=== PATIENT | female | born 1955 | race Caucasian/White ===

== ENCOUNTER 2016-10-16 09:19 | Emergency (ER) | payer BC, OTHER ==
[~2016-10-16] VITALS: Ht 162.6 cm; Wt 88.5 kg
[~2016-10-16 09:19] MED LIST: ADVIN10/60 INH; ASPI81CH2 PO; CALCCHW PO; CHOL100027 PO; COEN1CAP7 PO; DILT180C70 PO; FEXO1TAB46 PO; LEVO125T72 PO; LOSA100T2 PO; MONT1TAB3 PO; NXM/40 PO; OMEG12006 PO; ROSU5TAB PO; XPNIN INH
[2016-10-16 09:29] VITALS: TEMP 37; Ht 162.6 cm; Wt 88.5 kg
[2016-10-16] MEDS ORDERED: LEVA45AE INH (09:34)
[2016-10-16] MEDS ORDERED: LEVO-519 PO (09:34)
[2016-10-16] MEDS ORDERED: PRT/20 PO (09:34)
--- NOTE | 2016-10-16 10:23 | EMERGENCY ROOM VISIT NOTE ---
ED Visit Note First contact with patient: 09:25 Chief Complaint: LEFT Wrist Pain - Fall History of Present Illness: Patient is a 61-year-old female who presents to the emergency Department by private vehicle for evaluation of an injury to the LEFT wrist. She reports that while ambulating in her driveway earlier this morning she slipped falling on an extended LEFT hand. She denies striking her head or any loss of consciousness. She reports a moderate amount of discomfort in the LEFT wrist which is worse with range of motion activities. Patient denies any numbness or tingling into the distal extremity. She rates her current discomfort is 7/10. She denies any associated shoulder pain, elbow pain, or finger pain. She did ice the area immediately with minimal relief of symptoms. The patient denies any prefall headaches, dizziness, lightheadedness, chest pain, or palpitations. Medications: Reviewed and discussed with the patient. Allergies: Phenazopyridine PMH: No pertinent past medical history. SHx: Patient is a 61-year-old female who lives locally. ROS: All pertinent positive and negative review of systems are appropriately documented in the History of Present Illness. Physical Exam: VITAL SIGNS - Vital signs and nursing notes were reviewed. GENERAL - 61-year-old female appearing her stated age and in noticeable discomfort throughout the exam. MUSCULOSKELETAL - Active ROM of the LEFT wrist was limited in all directions. Moderate edema noted over the distal LEFT wrist. No palpable deformities. Moderate tenderness over the radial and ulnar styloid processes. Mild tenderness with squeezing the distal forearm. No tenderness extending into the carpals. No point-tenderness over the anatomic snuffbox. Moderate pain elicited with supination and pronation of the forearm. NEUROLOGIC - SENSORY: Spinothalamic tract was found to be intact with ability to discriminate sharp versus dull sensation at the level of the LEFT elbow down to the fingertips. No sensory deficits of the dorsal column were appreciated utilizing light touch for evaluation. VASCULAR - Capillary refill was brisk. +3/5 radial pulse palpated. IMAGING: LEFT WRIST W/NAVICULAR MIN 3 VIEWS CLINICAL HISTORY: pain s/p fall trauma. Pain. COMPARISON: None. DISCUSSION: Transverse slightly impacted fracture distal radius. Avulsion ulnar styloid. Moderate soft tissue edema. No evidence of dislocation. 2009 IMPRESSION: 1. Transverse slightly impacted fracture distal radius. 2. An avulsion ulnar styloid. ED Course: Patient was seen and evaluated by myself. Patient declines anything for pain while in the emergency department. Patient was provided ice for comfort. X- ray of the affected wrist was obtained. Imaging results as above. Imaging results were reviewed with the patient who acknowledges understanding. The patient was placed in an Ortho-Glass splint for comfort. The patient remains neurovascularly intact pre-and post-splinting. Patient will follow closely with [facility] orthopedics with whom she has been established. The patient was educated on worrisome symptoms for return visit to the emergency department. Patient discharged home in good condition. In the evaluation and treatment of this patient, the following differential diagnoses were considered: Wrist Sprain, Wrist Fracture, Wrist Dislocation, Scapholunate Dissociation, Carpal Fracture, Metacarpal Fracture, Radial Styloid Process Fracture, Ulnar Styloid Process Fracture, or Carpal Tunnel Syndrome. Impression: LEFT Wrist Fracture (Radius and Ulnar Styloid Process Fracture) Discharge Instructions: You have been treated in the Emergency Department for Wrist Fracture. You have been prescribed Vesta to be used for pain control. This is a narcotic medication. You cannot drive or consume alcohol while on this medicine. This medicine should only be used for pain that cannot be controlled with over-the- counter pain medicines. For pain control, you can use the following fnhy-alw-rxsafkm medicines (if >12 yo): - Regular strength (325mg/tab) Tylenol (acetaminophen) 2 tabs every 4-6 hours as needed. Do not exceed 12 tablets in a 24 hour period. Avoid taking more than 4 grams (4000 mg) of Tylenol per day. This includes any other sources of acetaminophen you may take on a regular basis. - Regular strength (200 mg/tab) Advil (ibuprofen) 1-2 tabs every 4-6 hours as needed. Do not exceed a dose of 3200 mg per day. If this is a recent injury (<24 hrs), ice can be applied to the area of pain for the first 3 days to help decrease pain and inflammation. You have been provided the number for an Orthopaedic Surgeon. You should call this number as soon as possible to establish a follow-up visit from today's Emergency Department visit. Keep the brace in place until evaluated by Orthopedics. Return to the Emergency Department if your current symptoms worsen despite treatment course outlined above, or if you develop any of the following symptoms : intractable pain despite aforementioned treatment course or new onset of numbness or tingling of the fingers. Problem List Medical Problems: (1) Anemia Status: Chronic Current/Historical Medications Scheduled Aspirin (Aspirin), MG PO DAILY Calcium Carbonate-Vitamin D W/ (Caltrate 600+D Plus), 1,200 MG PO DAILY Cholecalciferol (Vitamin D 1000 Unit), 1,000 INTER.UNIT PO DAILY Coenzyme Q10 (Ubidecarenone) (Coq10), MG PO DAILY Diltiazem Hcl (Diltiazem Hcl), 1 MG PO DAILY Esomeprazole Magnesium (Nexium), 40 MG PO QPM Fexofenadine Hcl (Violeta), 180 MG PO DAILY Fluticasone Prop/Salmeterol (Advair Diskus 100/50 60 Dose), 1 PUFF INH BID Levothyroxine Sodium (Synthroid), 137 MCG PO DAILY Montelukast Sodium (Singulair), 10 MG PO DAILY [place]-3 Fatty Acids ([place] 3), 1,400 MG PO DAILY Pantoprazole (Protonix), 20 MG PO QAM Rosuvastatin Calcium (Crestor), 5 MG PO DAILY Scheduled PRN Hydrocodone/Acetaminophen 5MG/325MG (Vesta 5MG/325MG), 1-2 TABLET PO Q4H PRN for Pain Levalbuterol Tartrate (Levalbuterol Tartrate Hfa), 1 PUFF INH DAILY PRN for SOB/ Wheezing Miscellaneous Medications Losartan Potassium & Hydrochlo (Hyzaar) Allergies Coded Allergies: Phenazopyridine (Verified Allergy, Mild, SYNCOPE, 10/16/16) Vital Signs Date Time Temp Pulse Resp B/P Pulse Ox O2 Delivery O2 Flow Rate FiO2 10/16/16 11:38 85 17 142/71 95 10/16/16 09:29 37.0 82 16 153/73 95 Room Air Departure Information Impression Primary Impression: Wrist fracture, left Dispostion Home / Self-Care Condition GOOD Prescriptions Hydrocodone/Acetaminophen 5MG/325MG (Vesta 5MG/325MG) Tab 1-2 TABLET PO Q4H Y for Pain, #16 TAB For Initial Treatment Prov: Skyler Rodriguez, [place] 10/16/16 Referrals Wei Malik M.D. (PCP) Abram Crook MD Patient Instructions ED Fracture, Wrist (Infant/Toddler), [facility] Additional Instructions You have been treated in the Emergency Department for Wrist Fracture. You have been prescribed Vesta to be used for pain control. This is a narcotic medication. You cannot drive or consume alcohol while on this medicine. This medicine should only be used for pain that cannot be controlled with over-the- counter pain medicines. For pain control, you can use the following mfpp-wdw-mpqhosw medicines (if >12 yo): - Regular strength (325mg/tab) Tylenol (acetaminophen) 2 tabs every 4-6 hours as needed. Do not exceed 12 tablets in a 24 hour period. Avoid taking more than 4 grams (4000 mg) of Tylenol per day. This includes any other sources of acetaminophen you may take on a regular basis. - Regular strength (200 mg/tab) Advil (ibuprofen) 1-2 tabs every 4-6 hours as needed. Do not exceed a dose of 3200 mg per day. If this is a recent injury (<24 hrs), ice can be applied to the area of pain for the first 3 days to help decrease pain and inflammation. You have been provided the number for an Orthopaedic Surgeon. You should call this number as soon as possible to establish a follow-up visit from today's Emergency Department visit. Keep the brace in place until evaluated by Orthopedics. Return to the Emergency Department if your current symptoms worsen despite treatment course outlined above, or if you develop any of the following symptoms : intractable pain despite aforementioned treatment course or new onset of numbness or tingling of the fingers. Problem Qualifiers Primary Impression: Wrist fracture, left Encounter type: initial encounter Fracture type: closed Qualified Codes: S62.102A - Fracture of unspecified carpal bone, left wrist, initial encounter for closed fracture
--- NOTE | 2016-10-16 10:46 | DIAGNOSTIC IMAGING REPORT ---
LEFT WRIST W/NAVICULAR MIN 3 VIEWS CLINICAL HISTORY: pain s/p fall trauma. Pain. COMPARISON: None. DISCUSSION: Transverse slightly impacted fracture distal radius. Avulsion ulnar styloid. Moderate soft tissue edema. No evidence of dislocation. 2009 IMPRESSION: 1. Transverse slightly impacted fracture distal radius. 2. An avulsion ulnar styloid. Electronically signed by: Byron Szymanski M.D. 10/16/2016 10:44 AM Dictated Date/Time: 10/16/2016 10:44 AM
[2016-10-16] MEDS ORDERED: HYDR-5688 PO (11:05)
[2016-10-16 11:38] VITALS: BP 142/71; PULSE 85; O2SAT 95
== END 2016-10-16 11:41 | disposition home or self-care (01) ==
LOC: C.EDB 09:20 → C.EDA 11:41
DX: S52.92XA Unspecified fracture of left forearm, initial encounter for closed fracture (principal); S52.202A Unspecified fracture of shaft of left ulna, initial encounter for closed fracture; W01.0XXA Fall on same level from slipping, tripping and stumbling without subsequent striking against object, initial encounter; Z79.82 Long term (current) use of aspirin; Z79.899 Other long term (current) drug therapy; Z88.8 Allergy status to other drugs, medicaments and biological substances

== ENCOUNTER → 2016-10-18 | Outpatient (CLI) | payer BC, OTHER ==
[~2016-10-18] MED LIST changes: +LEVA45AE INH; +LEVO-519 PO; -LEVO125T72 PO; +PRT/20 PO; -XPNIN INH
[2016-10-18 13:59] LABS: HEMATOCRIT 39.5 % (37-47); MEAN CORPUSCULAR HEMOGLOBIN 29.3 pg (25-34); MEAN CORPUSCULAR HGB CONC 32.9 g/dl (32-36); MEAN PLATELET VOLUME 10.8 fL (7.4-10.4); PLATELET COUNT 288 K/uL (130-400); RED BLOOD COUNT 4.44 M/uL (4.2-5.4); WHITE BLOOD COUNT 9.38 K/uL (4.8-10.8)
[2016-10-18 14:20] LABS: BLOOD UREA NITROGEN 15 mg/dl (7-18); CARBON DIOXIDE 32 mmol/L (21-32); CHLORIDE 103 mmol/L (98-107); CREATININE 0.82 mg/dl (0.60-1.20); SODIUM 143 mmol/L (136-145)
== END | disposition home or self-care (01) ==
LOC: C.CPL 12:31
PROVIDERS: ATTEND Physical Medicine & Rehabilitation Sports Medicine
DX: Z01.810 Encounter for preprocedural cardiovascular examination (principal); Z01.812 Encounter for preprocedural laboratory examination; S52.532A Colles' fracture of left radius, initial encounter for closed fracture; X58.XXXA Exposure to other specified factors, initial encounter

== ENCOUNTER → 2016-10-19 | Day surgery (SDC) | payer BC, OTHER ==
[2016-10-17 11:47] VITALS: Ht 162.6 cm; Wt 89.5 kg
[~2016-10-19] VITALS: Ht 162.6 cm; Wt 89.5 kg
[~2016-10-19] MED LIST changes: +ATROPINE SULFATE 0.1 MG/ML 5ML SYR IV PRN; +BUPIVACAINE 0.5 % 5 MG/1 ML PF 10ML VIAL ONE; +CEFAZOLIN 2000 MG/60 ML D5W IV SCH; +DEXAMETHASONE SOD INJ 4 MG/ML VIAL ONE; +EpHEDrine SULFATE INJ 50 MG/ML AMP IV PRN; +FENTANYL CITRATE INJ 50 MCG/1 ML 2 ML VIAL IV PRN; +FENTANYL CITRATE INJ 50 MCG/1 ML 2 ML VIAL ONE; +FLUMAZENIL 0.1 MG/1 ML 10 ML VIAL IV PRN; +HYDROCODONE/ACETAMOPHEN 5/325MG TAB PO PRN; +HYDROmorphone INJ 2 MG/ML SYR/VIAL IV PRN; +KETOROLAC TROMETHAMINE 30 MG/ML VIAL IV STA; +KETOROLAC TROMETHAMINE 30 MG/ML VIAL ONE; +LABETALOL HCL IV 5 MG/ML 20ML IV PRN; +LACTATED RINGER'S 1000ML 1,000 ML IV SCH; +LIDOCAINE HCL 1% 20 ML VIAL ONE; +LIDOCAINE HCL 2% 2 ML VIAL (20MG/ML) ONE; +MEPERIDINE HCL 25 MG/ML CARP IV PRN; +METOCLOPRAMIDE HCL INJ 5 MG/ML 2 ML VIAL ONE; +MIDAZOLAM HCL 1 MG/ML 2ML VIAL ONE; +MoRPHine SULFATE 2 MG/ML CARP IV PRN; +MoRPHine SULFATE 4 MG/ML 1 ML CARP\\VIAL IV PRN; +NALOXONE HCL 0.4 MG/1 ML VIAL/CARP IV PRN; +ONDANSETRON INJ 2 MG/ML 2 ML VIAL IV PRN; +ONDANSETRON INJ 2 MG/ML 2 ML VIAL ONE; +PHENYLEPHRINE 100MCG/ML 5ML SYR IV PRN; +PROPOFOL IV EMULSION 10 MG/ML 20 ML VIAL IV ONE; +SODIUM CHLORIDE 0.9% 1000ML 1,000 ML IV SCH
--- NOTE | 2016-10-19 13:25 | History & Physical Bridge Note ---
H&P Re-Evaluation Bridge Note: I have examined the patient, reviewed the History & Physical and in the interval since the performance of the History & Physical I have noted the following changes of clinical significance: No changes noted
[2016-10-19 13:38] LABS: POTASSIUM 3.2 mmol/L (3.5-5.1)
--- NOTE | 2016-10-19 16:59 | [facility] Post Operative Brief Note ---
Immediate Operative Summary Operative Date Oct 19, 2016. Pre-Operative Diagnosis Left distal radius fracture Post-Operative Diagnosis same Procedure(s) Performed Left Distal Radius Fracture Open Reduction Internal Fixation Surgeon Dr Faust Outreach Representative Surgeon(s) Xavier Baker PA-C, kathy thomas ms 3 Estimated Blood Loss 25 ML Findings distal radius fracture Specimens 0 Anesthesia LMA Complication(s) None Disposition Recovery Room / PACU
--- NOTE | 2016-10-19 17:20 | [facility] Operative Report ---
Operative Report Operative Date Oct 19, 2016. Pre-Operative Diagnosis Left distal radius fracture Post-Operative Diagnosis same Procedure(s) Performed Left Distal Radius Fracture Open Reduction Internal Fixation Surgeon Dr Faust 4Th Grade Math Teacher Surgeon(s) Xavier Baker PA-C, kathy thomas ms 3 Estimated Blood Loss 25 ML Findings NA Specimens 0 Complication(s) None Disposition Recovery Room / PACU I attest to the content of the Intraoperative Record and any orders documented therein. Any exceptions are noted below.
--- NOTE | 2016-10-19 17:24 | Discharge Instructions ---
Discharge Instructions Admission Reason for Admission: Left Distal Radius Fracture Discharge Discharge Diagnosis / Problem: ORIF of Left Distal Radius Fracture Discharge Goals Goal(s): Decrease discomfort, Improve function, Increase independence Activity Recommendations Activity Limitations: as noted below Lifting Limitations: until after follow-up appointment Exercise/Sports Limitations: none (No exercise or sports) May Resume Sexual Activity: when tolerated Shower/Bathe: tomorrow, keep incision dry Driving or Machine Use: No driving until cleared by Orthopaedic specialist. Weightbearing Status: Left non-weightbearing (Left upper extremity) . Instructions / Follow-Up Instructions / Follow-Up DIET: * Resume previous diet. MEDICATIONS: * Please take your prescriptions as instructed at your pre-op appointment and/ or see medication discharge instructions listed above. * If concerns develop, call your physician's office at . SPECIAL CARE INSTRUCTIONS: * Ice/Elevate as instructed. * Keep dressing clean, dry, intact. * Your surgical extremity may be discolored due to prepping agents used on the skin. A bluish-green tint is a normal variant and should not cause alarm. Call your doctor at [phone] if: * Temperature above 101 degrees * Pain not relieved by pain medicine ordered * There is increased drainage or redness from any incision * You have any unanswered questions, problems or concerns. FOLLOW UP VISIT: * If not already scheduled, please call the office at to schedule a follow-up appointment. Current Hospital Diet Patient's current hospital diet: Discharge Diet Recommended Diet: Regular Diet Procedures Procedures Performed: Left Distal Radius Fracture Open Reduction Internal Fixation Pending Studies Studies pending at discharge: no Medical Emergencies . Who to Call and When: Medical Emergencies: If at any time you feel your situation is an emergency, please call 911 immediately. . Non-Emergent Contact Non-Emergency issues call your: Primary Care Provider Call Non-Emergent contact if: temperature is above 101.5, your pain is not controlled, wound has increased drainage, you have any medication questions . "Provider Documentation" section prepared by Tuan Baker. VTE Core Measure Inpt VTE Proph given/why not?: Treatment not indicated [place] Drug Monitoring Program Search Results: no issues identified
[2016-10-19 17:55] VITALS: TEMP 36.6
[2016-10-19 18:17] VITALS: BP 152/76; PULSE 79; O2SAT 95
--- NOTE | 2016-10-19 18:17 | Anesthesia Progress Nt - [facility] ---
Anesthesia Post Op Note Date & Time Oct 19, 2016 at 18:18 Vital Signs Pain Intensity: 3 Vital Signs Past 12 Hours Date Time Temp Pulse Resp B/P Pulse Ox O2 Delivery O2 Flow Rate FiO2 10/19/16 17:55 36.6 84 18 171/74 95 Room Air 10/19/16 17:50 37.2 99 Room Air 10/19/16 17:49 85 15 10/19/16 17:49 84 15 98 10/19/16 17:48 83 15 140/80 99 10/19/16 17:48 83 15 140/80 99 10/19/16 17:48 83 15 10/19/16 17:48 83 15 10/19/16 17:43 78 13 10/19/16 17:43 78 13 10/19/16 17:43 78 13 137/77 94 10/19/16 17:43 78 13 137/77 94 10/19/16 17:38 80 15 151/74 96 10/19/16 17:38 80 15 10/19/16 17:38 80 15 10/19/16 17:38 80 15 151/74 96 10/19/16 17:33 83 20 146/82 100 10/19/16 17:33 83 20 10/19/16 17:33 83 20 10/19/16 17:33 83 20 146/82 100 10/19/16 17:28 75 18 131/82 100 10/19/16 17:28 75 18 131/82 100 10/19/16 17:28 76 18 10/19/16 17:28 76 18 10/19/16 17:23 87 9 139/86 99 10/19/16 17:23 86 9 10/19/16 17:23 87 9 139/86 99 10/19/16 17:23 37.2 84 12 136/83 99 Mask 6 10/19/16 17:23 86 9 10/19/16 13:10 37.0 81 18 143/77 95 Room Air Notes Mental Status: alert / awake / arousable, participated in evaluation Pt Amnestic to Procedure: Yes Nausea / Vomiting: adequately controlled Pain: adequately controlled Airway Patency, RR, SpO2: stable & adequate BP & HR: stable & adequate Hydration State: stable & adequate Anesthetic Complications: no major complications apparent
--- NOTE | 2016-10-19 19:49 | OPERATIVE REPORT ---
DATE OF OPERATION: 10/19/2016 PREOPERATIVE DIAGNOSIS: Left distal radius fracture. POSTOPERATIVE DIAGNOSIS: Same. PROCEDURE: Open reduction and internal fixation. SURGEON: Dr. Faust. ELECTRIC BLANKET WIRER: Audie Baker. No resident or fellow available. SECOND ELECTRIC BLANKET WIRER: Florencio Marcelino, third year [employer] medical student. ANESTHESIA: Laryngeal mask. INDICATIONS OF PROCEDURE: The patient is a 61-year-old female, status post fall, resulting in a distal radius fracture with dorsal radial comminution and an unacceptable closed reduction. Treatment options were discussed and she elected to proceed with ORIF. PROCEDURE IN DETAIL: Informed consent was obtained. The patient was identified as Vanessa Diehl. She identified the operative site as the left wrist. I marked it with my initials. A preop surgical timeout was performed. A preop dose of IV antibiotics was given. She was taken to the operating room, positioned supine on the operating room table. A laryngeal mask anesthetic was given. The left arm was inspected, prescrubbed and then prepped and draped in usual sterile fashion after application of an arm tourniquet. DVT prophylaxis intraoperatively with foot pumps, postoperatively is not necessary. The exam showed an unstable distal radius fracture. The limb was exsanguinated with the Esmarch, tourniquet inflated to 225 mmHg. A longitudinal incision was made overlying the flexor carpi radialis about 8-10 cm in length. Blunt dissection was performed through the subcutaneous tissues. The FCR sheath was opened. The FCR was retracted ulnarly. The floor of the FCR sheath was opened and the radial artery was retracted radially. The flexor digitorum superficialis was elevated up off of the radius, the pronator quadratus was incised and reflected ulnarly. The fracture was identified. The brachioradialis was identified and divided. At the end of the procedure, I attempted to repair but the tissue was so attenuated that a [id number] repair was not possible. The radius was reduced and a peg was inserted through the styloid and anatomic reduction was confirmed with protestant of volar tilt, radial height and neutral variance. I then selected a 2-hole variable angle plate, positioned it and adjusted it x1 based upon x-rays. I then inserted 2 locking screws distally, taking care to avoid the articular surface. I then used a cortical screw in the oblong hole of the plate to increase the volar tilt and sucked the plate down to the bone. Remainder of the distal screw holes were filled with locking screws and a locking screw was placed in the most proximal hole of the plate. Radiographs showed maintenance of radial height, neutral variance. The screws were outside the joint on the articular, the lateral. There was slight volar tilting, perhaps not up to 10 degrees but about 5 degrees. The screws were not abnormally long and care was taken when placing the screws distally to make them unicortical. Tourniquet let down after 50 minutes of inflation and copious irrigation was performed. The pronator quadratus was repaired with 0 Vicryl. The skin was then closed with 4-0 Vicryl and a running 3-0 Prolene subcuticular stitch. The arm was cleaned with wet and dry sponges. 0.5% Marcaine was injected for local anesthetic and a soft sterile dressing was applied along with a volar resting splint. The patient was awakened from anesthesia without difficulty and taken to recovery in stable condition. There were no specimens or complications. Counts were correct at the end of case. Blood loss was approximately 25 mL. At the conclusion of the operation, I spoke to patient's family and informed them of my findings. Postoperative instructions were given. She will be able to do some early protected active range of motion and physical therapy. I attest to the content of the Intraoperative Record and any orders documented therein. Any exceptio ns are noted below.
== END | disposition home or self-care (01) ==
LOC: X.SURG 12:26
PROVIDERS: ATTEND Physical Medicine & Rehabilitation Sports Medicine
DX: S52.532A Colles' fracture of left radius, initial encounter for closed fracture (principal); W10.0XXA Fall (on)(from) escalator, initial encounter; I10 Essential (primary) hypertension; E78.5 Hyperlipidemia, unspecified; J45.909 Unspecified asthma, uncomplicated; K21.9 Gastro-esophageal reflux disease without esophagitis; Z85.850 Personal history of malignant neoplasm of thyroid; Y93.89 Activity, other specified; Y92.89 Other specified places as the place of occurrence of the external cause; Y99.8 Other external cause status; Z88.7 Allergy status to serum and vaccine; Z88.8 Allergy status to other drugs, medicaments and biological substances

== ENCOUNTER → 2016-11-01 | Outpatient (CLI) | payer BC, OTHER ==
[~2016-11-01] MED LIST changes: -ATROPINE SULFATE 0.1 MG/ML 5ML SYR IV PRN; -BUPIVACAINE 0.5 % 5 MG/1 ML PF 10ML VIAL ONE; -CEFAZOLIN 2000 MG/60 ML D5W IV SCH; -DEXAMETHASONE SOD INJ 4 MG/ML VIAL ONE; -EpHEDrine SULFATE INJ 50 MG/ML AMP IV PRN; -FENTANYL CITRATE INJ 50 MCG/1 ML 2 ML VIAL IV PRN; -FENTANYL CITRATE INJ 50 MCG/1 ML 2 ML VIAL ONE; -FLUMAZENIL 0.1 MG/1 ML 10 ML VIAL IV PRN; -HYDROCODONE/ACETAMOPHEN 5/325MG TAB PO PRN; -HYDROmorphone INJ 2 MG/ML SYR/VIAL IV PRN; -KETOROLAC TROMETHAMINE 30 MG/ML VIAL IV STA; -KETOROLAC TROMETHAMINE 30 MG/ML VIAL ONE; -LABETALOL HCL IV 5 MG/ML 20ML IV PRN; -LACTATED RINGER'S 1000ML 1,000 ML IV SCH; -LIDOCAINE HCL 1% 20 ML VIAL ONE; -LIDOCAINE HCL 2% 2 ML VIAL (20MG/ML) ONE; -MEPERIDINE HCL 25 MG/ML CARP IV PRN; -METOCLOPRAMIDE HCL INJ 5 MG/ML 2 ML VIAL ONE; -MIDAZOLAM HCL 1 MG/ML 2ML VIAL ONE; -MoRPHine SULFATE 2 MG/ML CARP IV PRN; -MoRPHine SULFATE 4 MG/ML 1 ML CARP\\VIAL IV PRN; -NALOXONE HCL 0.4 MG/1 ML VIAL/CARP IV PRN; -ONDANSETRON INJ 2 MG/ML 2 ML VIAL IV PRN; -ONDANSETRON INJ 2 MG/ML 2 ML VIAL ONE; -PHENYLEPHRINE 100MCG/ML 5ML SYR IV PRN; -PROPOFOL IV EMULSION 10 MG/ML 20 ML VIAL IV ONE; -SODIUM CHLORIDE 0.9% 1000ML 1,000 ML IV SCH
== END | disposition home or self-care (01) ==
LOC: C.RDSM 13:00
PROVIDERS: ATTEND Physical Medicine & Rehabilitation Sports Medicine
DX: S52.532A Colles' fracture of left radius, initial encounter for closed fracture (principal); X58.XXXA Exposure to other specified factors, initial encounter

== ENCOUNTER → 2016-12-04 | Outpatient (CLI) | payer BC, OTHER | END | disposition home or self-care (01) | LOC: C.RDSM 11:37 | PROVIDERS: ATTEND Physical Medicine & Rehabilitation Sports Medicine | DX: S52.532A Colles' fracture of left radius, initial encounter for closed fracture (principal); X58.XXXA Exposure to other specified factors, initial encounter ==

== ENCOUNTER → 2016-12-19 | Outpatient (CLI) | payer BC, OTHER ==
--- NOTE | 2016-12-20 13:55 | MAMMOGRAPHY REPORT ---
BILATERAL DIGITAL SCREENING MAMMOGRAM TOMOSYNTHESIS WITH CAD: 12/19/2016 CLINICAL HISTORY: Routine screening. Patient has no complaints. TECHNIQUE: Breast tomosynthesis in addition to standard 2D mammography was performed. Current study was also evaluated with a Computer Aided Detection (CAD) system. COMPARISON: Comparison is made to exams dated: 12/16/2015 mammogram, 12/14/2014 mammogram, 12/12/2013 mammogram, 12/11/2012 mammogram, 12/11/2011 mammogram, and 12/08/2010 mammogram - [facility] enter. BREAST COMPOSITION: The tissue of both breasts is heterogeneously dense, which may obscure small ma sses. FINDINGS: There are a few stable benign-appearing microcalcifications. No new suspicious spiculated or irregular mass, architectural distortion or cluster of suspicious microcalcifications is seen. IMPRESSION: ACR BI-RADS CATEGORY 1: NEGATIVE There is no mammographic evidence of malignancy. A 1 year screening mammogram is recommended. The p atient will receive written notification of the results. Approximately 10% of breast cancers are not detected with mammography. A negative mammographic repor t should not delay biopsy if a clinically suggestive mass is present. Kiara Sargent M.D. ay/:12/19/2016 17:34:16 Food Service Aide: Suzanne LITTLEJOHN)(Teodora), [facility] letter sent: Normal 1/2 BI-RADS Code: ACR BI-RADS Category 1: Negative
== END | disposition home or self-care (01) ==
LOC: C.MAMM 07:55
PROVIDERS: ATTEND Obstetrics & Gynecology
DX: Z12.31 Encounter for screening mammogram for malignant neoplasm of breast (principal)

== ENCOUNTER → 2017-02-27 | Outpatient (CLI) | payer BC, OTHER | END | disposition home or self-care (01) | LOC: C.RDSM 13:43 | PROVIDERS: ATTEND Physical Medicine & Rehabilitation Sports Medicine | DX: S52.532D Colles' fracture of left radius, subsequent encounter for closed fracture with routine healing (principal); X58.XXXD Exposure to other specified factors, subsequent encounter ==

== ENCOUNTER → 2017-03-12 | Outpatient (CLI) | payer BC, OTHER ==
[2017-03-12 11:06] LABS: BASO % 0.8 %; BASO ABS # 0.05 K/uL (0-0.2); COMPLETE YES; EOS % 1.8 %; HEMATOCRIT 40.5 % (37-47); IG% 0.2 %; LYMPH % 30.3 %; MEAN CELL VOLUME 89.2 fL (80-100); MEAN CORPUSCULAR HEMOGLOBIN 29.1 pg (25-34); MEAN CORPUSCULAR HGB CONC 32.6 g/dl (32-36); MEAN PLATELET VOLUME 11.4 fL (7.4-10.4); MONO % 8.9 %; PLATELET COUNT 230 K/uL (130-400); RED BLOOD COUNT 4.54 M/uL (4.2-5.4); WHITE BLOOD COUNT 6.27 K/uL (4.8-10.8)
[2017-03-12 11:27] LABS: ALT/SGPT 41 U/L (12-78); AST/SGOT 25 U/L (15-37); BLOOD UREA NITROGEN 19 mg/dl (7-18); BUN/CREATININE RATIO 23.9 (10-20); CALCIUM 9.2 mg/dl (8.5-10.1); CARBON DIOXIDE 30 mmol/L (21-32); CHLORIDE 106 mmol/L (98-107); CREATININE 0.81 mg/dl (0.60-1.20); GLUCOSE 110 mg/dl (70-99); POTASSIUM 3.7 mmol/L (3.5-5.1); SODIUM 142 mmol/L (136-145)
[2017-03-12 11:32] LABS: ALB/GLOB RATIO 1.1 (0.9-2); ALKALINE PHOSPHATASE 69 U/L (45-117); FERRITIN 27.5 ng/ml (8.0-388.0); TOTAL IRON BINDING CAPACITY 384 mcg/dl (250-450)
== END | disposition home or self-care (01) ==
LOC: C.LABBC 08:54
PROVIDERS: ATTEND Nurse Practitioner Family
DX: D50.9 Iron deficiency anemia, unspecified (principal)

== ENCOUNTER → 2017-03-22 | Outpatient (CLI) | payer BC, OTHER ==
--- NOTE | 2017-03-22 15:46 | DIAGNOSTIC IMAGING REPORT ---
VENOUS DOPPLER LW EXT BILAT HISTORY: Pain. Edema. M25.472 Edema of left ankle please arrange for [id number] COMPARISON STUDY: None. FINDINGS: There is normal compressibility, flow, and augmentation within the bilateral lower extremity deep venous systems. IMPRESSION: No DVT within the right or left lower extremity. The above report was generated using voice recognition software. It may contain grammatical, syntax or spelling errors. Electronically signed by: Byron Szymanski M.D. 03/22/2017 3:44 PM Dictated Date/Time: 03/22/2017 3:44 PM
== END | disposition home or self-care (01) ==
LOC: C.ULTR 14:46
PROVIDERS: ATTEND Internal Medicine Pulmonary Disease
DX: M25.472 Effusion, left ankle (principal)

== ENCOUNTER → 2017-08-10 | Outpatient (CLI) | payer BC, OTHER | END | disposition home or self-care (01) | LOC: C.RDSM 15:29 | PROVIDERS: ATTEND Physical Medicine & Rehabilitation Sports Medicine | DX: M25.562 Pain in left knee (principal) ==

== ENCOUNTER → 2017-09-12 | Outpatient (CLI) | payer BC, OTHER ==
[2017-09-12 11:05] LABS: BASO % 0.4 %; BASO ABS # 0.03 K/uL (0-0.2); EOS % 0.6 %; EOS ABS # 0.05 K/uL (0-0.5); HEMATOCRIT 42.3 % (37-47); HEMOGLOBIN 13.9 g/dL (12.0-16.0); IG# 0.01 K/uL (0.00-0.02); LYMPH ABS # 1.61 K/uL (1.2-3.4); MEAN CELL VOLUME 88.9 fL (80-100); MEAN CORPUSCULAR HEMOGLOBIN 29.2 pg (25-34); MEAN CORPUSCULAR HGB CONC 32.9 g/dl (32-36); MEAN PLATELET VOLUME 11.2 fL (7.4-10.4); MONO % 6.8 %; MONO ABS # 0.55 K/uL (0.11-0.59); NEUT % 72.1 %; NEUT ABS # 5.79 K/uL (1.4-6.5); PLATELET COUNT 259 K/uL (130-400); RED CELL DISTRIBUTION WIDTH CV 13.5 % (11.5-14.5); RED CELL DISTRIBUTION WIDTH SD 43.7 fL (36.4-46.3); WHITE BLOOD COUNT 8.04 K/uL (4.8-10.8)
== END | disposition home or self-care (01) ==
LOC: C.LABBC 08:44
PROVIDERS: ATTEND Nurse Practitioner Family
DX: D50.9 Iron deficiency anemia, unspecified (principal)

== ENCOUNTER → 2017-10-23 | Outpatient (CLI) | payer BC, OTHER | END | disposition home or self-care (01) | LOC: C.MAMM 15:30 | PROVIDERS: ATTEND Internal Medicine | DX: M85.851 Other specified disorders of bone density and structure, right thigh (principal); M85.852 Other specified disorders of bone density and structure, left thigh ==

== ENCOUNTER → 2017-12-21 | Outpatient (CLI) | payer BC, OTHER ==
--- NOTE | 2017-12-24 08:08 | MAMMOGRAPHY REPORT ---
BILATERAL DIGITAL SCREENING MAMMOGRAM TOMOSYNTHESIS WITH CAD: 12/21/2017 CLINICAL HISTORY: Routine screening. Patient has no complaints. TECHNIQUE: Breast tomosynthesis in addition to standard 2D mammography was performed. Current study was also evaluated with a Computer Aided Detection (CAD) system. COMPARISON: Comparison is made to exams dated: 12/19/2016 mammogram, 12/16/2015 mammogram, 12/14/2014 m ammogram, 12/12/2013 mammogram, 12/11/2012 mammogram, and 12/08/2010 mammogram - [facility] nter. BREAST COMPOSITION: The tissue of both breasts is heterogeneously dense, which may obscure small mas ses. FINDINGS: No suspicious masses, calcifications, or areas of architectural distortion are noted in ei ther breast. There has been no significant interval change compared to prior exams. Scattered bilater al benign-appearing calcifications are not significantly changed. IMPRESSION: ACR BI-RADS CATEGORY 2: BENIGN There is no mammographic evidence of malignancy. A 1 year screening mammogram is recommended. The pa tient will receive written notification of the results. Approximately 10% of breast cancers are not detected with mammography. A negative mammographic report should not delay biopsy if a clinically suggestive mass is present. Elizabeth Guzman M.D. ah/:12/21/2017 12:34:11 [employer] Systems: Marah GARCIA(Abhinav)(M), [facility] letter sent: Normal 1/2 BI-RADS Code: ACR BI-RADS Category 2: Benign
== END ==
LOC: C.MAMM 08:41
PROVIDERS: ATTEND Family Medicine
DX: Z12.31 Encounter for screening mammogram for malignant neoplasm of breast (principal)